=== PATIENT | male | born 1970 | race Caucasian/White ===

== ENCOUNTER 2019-01-25 15:15 | Emergency (ER) | payer OTHER ==
[2019-01-25] MEDS: IBUPROFEN 800 MG TAB PO (16:52)
[2019-01-25 19:13] LABS: ADD MAN DIFF? NO
[2019-01-25 19:15] LABS: WHITE BLOOD COUNT 11.7 10^3/ul (4.8-10.8)
[2019-01-25 19:15] LABS: BASOPHIL # 0.1 10^3/ul (0.0-0.1); BASOPHILS % 0.6 % (0.0-2.0); EOSINOPHILS # 0.2 10^3/ul (0.0-0.5); EOSINOPHILS % 1.9 % (0.0-7.0); HEMATOCRIT 41.6 % (42.0-52.0); HEMOGLOBIN 14.1 g/dl (14.0-18.0); LYMPHOCYTES % 25.9 % (15.0-51.0); MEAN CORPUSCULAR HEMOGLOBIN 31.4 pg (29.0-33.0); MEAN CORPUSCULAR HGB CONC 33.9 g/dl (32.0-37.0); MEAN CORPUSCULAR VOLUME 92.7 fl (82.0-101.0); MEAN PLATELET VOLUME 10.1 fl (7.4-10.4); MONOCYTE # 1.1 10^3/ul (0.3-0.9); MONOCYTES % 9.6 % (0.0-11.0); NEUTROPHIL # 7.2 10^3/ul (1.6-7.5); NEUTROPHILS % 61.5 % (39.0-77.0); PLATELET COUNT 184 10^3/UL (140-415); RED BLOOD COUNT 4.49 10^6/ul (4.70-6.10); RED CELL DISTRIBUTION WIDTH 12.1 % (11.5-14.5)
[2019-01-25 19:22] LABS: ADD UMIC YES; UR ASCORBIC ACID NEGATIVE (NEGATIVE); UR BILIRUBIN (Dip) 1+ mg/dL (NEGATIVE); UR BLOOD (Dip) NEGATIVE (NEGATIVE); UR CLARITY SLIGHTLY CLOUDY (CLEAR); UR COLOR AMBER (YELLOW); UR GLUCOSE (Dip) NEGATIVE (NEGATIVE); UR KETONES (Dip) NEGATIVE (NEGATIVE); UR LEUKOCYTE ESTERASE (Dip) NEGATIVE Leu/ul (NEGATIVE); UR MUCUS MANY /HPF (NONE SEEN); UR NITRITE (Dip) NEGATIVE (NEGATIVE); UR RBC 0 /HPF (0-5); UR TOTAL PROTEIN (Dip) 1+ mg/dl (NEGATIVE); UR UROBILINOGEN (Dip) 1+ mg/dL (NEGATIVE); UR WBC 1 /HPF (0-5)
[2019-01-25] MEDS: ONDANSETRON 4 MG INJ IV (19:29)
[2019-01-25] MEDS: morphine 4 MG/ML VIAL IV (19:29)
[2019-01-25 19:36] LABS: PROTIME 13.3 Sec (11.9-14.9)
[2019-01-25 19:43] LABS: ALANINE AMINOTRANSFERASE 38 IU/L (13-69); ALBUMIN 4.5 g/dl (3.3-4.9); ALBUMIN/GLOBULIN RATIO 1.66; ALKALINE PHOSPHATASE 58 IU/L (42-121); ANION GAP 10 (5-13); ASPARTATE AMINO TRANSFERASE 27 IU/L (15-46); BILIRUBIN,INDIRECT 0.8 mg/dl (0-1.1); BILIRUBIN,TOTAL 0.8 mg/dl (0.2-1.3); BLOOD UREA NITROGEN 18 mg/dl (7-20); CARBON DIOXIDE 24 mmol/L (21-31); CHLORIDE 104 mmol/L (97-110); CREATININE 1.02 mg/dl (0.61-1.24); Estimated GFR > 60 mL/min (>60); GLUCOSE 99 mg/dl (70-220); LIPASE 100 U/L (23-300); POTASSIUM 3.8 mmol/L (3.5-5.1); SODIUM 138 mmol/L (135-144); TOTAL PROTEIN 7.2 g/dl (6.1-8.1)
[2019-01-25] MEDS: AMPICILLIN/SULB 3 GM/NS (PMX) 100 ML IVPB (19:44)
[2019-01-25] MEDS ORDERED: BUPIVACAINE 0.5%/EPI (SDV) 30 ML INJ (19:45)
[2019-01-25] MEDS ORDERED: PROPOFOL 20 ML (19:50)
[2019-01-25] MEDS ORDERED: LIDOCAINE 2% (SDV) 5 ML INJ (19:52)
[2019-01-25 19:54] LABS: TROPONIN-I < 0.012 ng/ml (0.000-0.120)
[2019-01-25] MEDS: HYDROmorphONE 2 MG/ML SYG IV (22:41)
[2019-01-26] MEDS ORDERED: SOD CHLORIDE 0.9% 1,000 ML IV (01:30)
[2019-01-26] MEDS ORDERED: ACETAMINOPHEN 325 MG TAB PO (01:30)
[2019-01-26] MEDS: PIPER-TAZO 3.375 GM IV (PMX) 100 ML IVPB ×2 (02:13→09:30)
[2019-01-26] MEDS: SOD CHLORIDE 0.9% 1,000 ML IV (02:13)
[2019-01-26] MEDS: ONDANSETRON 4 MG INJ IV ×2 (02:20)
[2019-01-26] MEDS: morphine 4 MG/ML VIAL IV (02:20)
[2019-01-26] MEDS: PANTOPRAZOLE (EC) 40 MG TAB PO (06:33)
[2019-01-26] MEDS: ACETAMINOPHEN 325 MG TAB PO ×2 (08:23→10:56)
[2019-01-26] MEDS: IBUPROFEN 600 MG TAB PO (10:56)
[2019-01-26] MEDS ORDERED: ATORVASTATIN 20 MG TAB PO (21:00)
== END 2019-01-26 10:58 | disposition home or self-care (01) ==
LOC: E/R 01-26 10:58 → FTE 15:15
DX: K38.9 Disease of appendix, unspecified (principal)
CPT/HCPCS: 36415; 71045; 74176; 80053; 81001; 83690; 84484; 85025; 85610; 85730; 93005; 96374; 96375; 96376; 99285-25

== ENCOUNTER 2019-01-28 13:58 | Inpatient (IN) | payer OTHER ==
[2019-01-28 14:28] LABS: ADD MAN DIFF? NO
[2019-01-28 14:31] LABS: BASOPHILS % 0.5 % (0.0-2.0); EOSINOPHILS # 0.3 10^3/ul (0.0-0.5); EOSINOPHILS % 3.5 % (0.0-7.0); HEMATOCRIT 40.7 % (42.0-52.0); HEMOGLOBIN 13.6 g/dl (14.0-18.0); LYMPHOCYTES # 2.3 10^3/ul (0.8-2.9); LYMPHOCYTES % 30.3 % (15.0-51.0); MEAN CORPUSCULAR HEMOGLOBIN 31.5 pg (29.0-33.0); MEAN CORPUSCULAR HGB CONC 33.4 g/dl (32.0-37.0); MEAN CORPUSCULAR VOLUME 94.2 fl (82.0-101.0); MEAN PLATELET VOLUME 10.1 fl (7.4-10.4); MONOCYTE # 0.9 10^3/ul (0.3-0.9); MONOCYTES % 11.1 % (0.0-11.0); NEUTROPHIL # 4.2 10^3/ul (1.6-7.5); NEUTROPHILS % 53.8 % (39.0-77.0); PLATELET COUNT 191 10^3/UL (140-415); RED BLOOD COUNT 4.32 10^6/ul (4.70-6.10)
[2019-01-28 14:31] LABS: WHITE BLOOD COUNT 7.7 10^3/ul (4.8-10.8)
[2019-01-28 14:39] LABS: ADD UMIC YES; UR ASCORBIC ACID NEGATIVE (NEGATIVE); UR BILIRUBIN (Dip) NEGATIVE (NEGATIVE); UR BLOOD (Dip) NEGATIVE (NEGATIVE); UR CLARITY CLEAR (CLEAR); UR COLOR YELLOW (YELLOW); UR GLUCOSE (Dip) NEGATIVE (NEGATIVE); UR KETONES (Dip) NEGATIVE (NEGATIVE); UR LEUKOCYTE ESTERASE (Dip) 1+ Leu/ul (NEGATIVE); UR MUCUS FEW /HPF (NONE SEEN); UR NITRITE (Dip) NEGATIVE (NEGATIVE); UR RBC 1 /HPF (0-5); UR SPECIFIC GRAVITY (Dip) 1.021 (1.003-1.030); UR TOTAL PROTEIN (Dip) NEGATIVE (NEGATIVE); UR UROBILINOGEN (Dip) NEGATIVE (NEGATIVE); UR WBC 0 /HPF (0-5)
[2019-01-28] MEDS: ONDANSETRON 4 MG INJ IV (14:39)
[2019-01-28] MEDS: HYDROmorphONE 2 MG/ML SYG IV (14:39)
[2019-01-28] MEDS: SODIUM CHLORIDE 0.9% 1L BAG IV* (14:40)
[2019-01-28 14:50] LABS: ALANINE AMINOTRANSFERASE 41 IU/L (13-69); ALBUMIN 4.4 g/dl (3.3-4.9); ALBUMIN/GLOBULIN RATIO 1.41; ALKALINE PHOSPHATASE 54 IU/L (42-121); ANION GAP 7 (5-13); ASPARTATE AMINO TRANSFERASE 28 IU/L (15-46); BILIRUBIN,INDIRECT 0.7 mg/dl (0-1.1); BILIRUBIN,TOTAL 0.7 mg/dl (0.2-1.3); BLOOD UREA NITROGEN 15 mg/dl (7-20); CALCIUM 9.5 mg/dl (8.4-10.2); CARBON DIOXIDE 27 mmol/L (21-31); CHLORIDE 105 mmol/L (97-110); CREATININE 1.01 mg/dl (0.61-1.24); Estimated GFR > 60 mL/min (>60); GLUCOSE 111 mg/dl (70-220); LIPASE 102 U/L (23-300); POTASSIUM 3.9 mmol/L (3.5-5.1); SODIUM 139 mmol/L (135-144); TOTAL PROTEIN 7.5 g/dl (6.1-8.1)
[2019-01-28] MEDS: AMPICILLIN/SULB 3 GM/NS (PMX) 100 ML IVPB (14:50)
[2019-01-28 15:02] LABS: TROPONIN-I < 0.012 ng/ml (0.000-0.120)
[2019-01-28 15:22] LABS: INR 1.08; PROTIME 14.1 Sec (11.9-14.9); PT RATIO 1.1
[2019-01-28 15:23] LABS: PARTIAL THROMBOPLASTIN TIME 30.3 Sec (23.0-35.0)
[2019-01-28] MEDS ORDERED: ONDANSETRON 4 MG INJ IV (16:00)
[2019-01-28] MEDS ORDERED: ACETAMINOPHEN 325 MG TAB PO (16:00)
[2019-01-28] MEDS ORDERED: morphine 2 MG INJ IV (18:00)
[2019-01-28] MEDS: DEXTROSE 5%-0.45% NACL 1,000 ML IV (18:41)
[2019-01-28] MEDS: FAMOTIDINE 20 MG INJ IV (21:41)
[2019-01-28] MEDS: PIPER-TAZO 3.375 GM IV (PMX) 100 ML IVPB (21:41)
[2019-01-29] MEDS: morphine 4 MG/ML VIAL IV ×3 (01:19→20:55)
[2019-01-29] MEDS: ALBUTEROL/IPRATROPIUM (NEB) 3 ML AMP HHN ×5 (03:07→21:30)
[2019-01-29] MEDS: DEXTROSE 5%-0.45% NACL 1,000 ML IV ×2 (04:26→14:00)
[2019-01-29] MEDS: PIPER-TAZO 3.375 GM IV (PMX) 100 ML IVPB ×3 (05:56→22:30)
[2019-01-29] MEDS ORDERED: BUPIVACAINE 0.25%/EPI (SDV) 10 ML INJ (09:18)
[2019-01-29] MEDS: FAMOTIDINE 20 MG INJ IV ×2 (10:35→20:55)
[2019-01-29] MEDS ORDERED: CEFAZOLIN 1 GM INJ (13:54)
[2019-01-29] MEDS ORDERED: ROCURONIUM 50 MG INJ ×2 (13:54→15:56)
[2019-01-29] MEDS ORDERED: PROPOFOL 20 ML ×2 (13:54→15:56)
[2019-01-29] MEDS ORDERED: ROPIVACAINE 0.5 % 30 ML VIAL (13:55)
[2019-01-29] MEDS ORDERED: MIDAZOLAM 1 MG/ML 2 ML INJ (13:55)
[2019-01-29] MEDS ORDERED: MEPERIDINE 25 MG INJ IV (14:00)
[2019-01-29] MEDS ORDERED: ALBUTEROL 0.083% (NEB) 2.5 MG/3 ML AMP HHN (14:00)
[2019-01-29] MEDS ORDERED: FENTAnyl 50 MCG/ML VIAL IV ×2 (14:00)
[2019-01-29] MEDS ORDERED: LABETALOL HCL 20MG INJ IV (14:00)
[2019-01-29] MEDS ORDERED: EPHEDrine 25 MG/5 ML SYG IV (14:00)
[2019-01-29] MEDS ORDERED: ONDANSETRON 4 MG INJ IV (14:00)
[2019-01-29] MEDS ORDERED: HYDROmorphONE 1 MG/5 ML IV SYRINGE IV ×3 (14:00)
[2019-01-29] MEDS ORDERED: DIPHENHYDRAMINE 50 MG INJ IV (14:00)
[2019-01-29] MEDS ORDERED: OXYCODONE/ACETAMINOPHEN (5/325) TAB PO (14:00)
[2019-01-29] MEDS ORDERED: IPRATROPIUM (NEB) 0.5 MG/2.5 ML AMP HHN (14:00)
[2019-01-29] MEDS ORDERED: METOCLOPRAMIDE 10 MG INJ IV (14:00)
[2019-01-29] MEDS ORDERED: DEXAMETHASONE 4 MG/ML 5 ML INJ (14:50)
[2019-01-29] MEDS ORDERED: ONDANSETRON 4 MG INJ (14:50)
[2019-01-29] MEDS ORDERED: METOCLOPRAMIDE 10 MG INJ (14:50)
[2019-01-29] MEDS: BUPIVACAINE 0.5%/EPI (SDV) 30 ML INJ (15:01)
[2019-01-29] MEDS ORDERED: SUGAMMADEX SODIUM 200 MG/2 ML VIAL IV (15:55)
[2019-01-29] MEDS ORDERED: KETOROLAC 30 MG INJ (15:55)
[2019-01-29] MEDS ORDERED: metroNIDAZOLE 500 MG/NS (PMX) 100 ML IVPB (15:56)
[2019-01-29] MEDS ORDERED: BUPIVACAINE 0.25% (MPF) 30 ML INJ (16:09)
[2019-01-29] MEDS ORDERED: BUPIVACAINE 0.5%/EPI (SDV) 30 ML INJ (16:10)
[2019-01-29] MEDS ORDERED: LABETALOL HCL 20MG INJ (16:11)
[2019-01-29] MEDS: ACETAMINOPHEN 1000MG/100ML IV 100 ML IVPB (17:04)
[2019-01-29] MEDS: METHYLPREDNISOLONE 40 MG INJ IV ×2 (18:07→22:30)
[2019-01-29] MEDS: SOD CHLORIDE 0.9% 100 ML (21:23)
[2019-01-29] MEDS: IOHEXOL 100 ML (21:23)
[2019-01-29] MEDS ORDERED: HYDROCODONE/APAP (5/325) TAB PO (23:00)
[2019-01-29] MEDS: HYDROCODONE/APAP (5/325) TAB PO (23:05)
[2019-01-30] MEDS: morphine 4 MG/ML VIAL IV ×2 (00:23→07:34)
[2019-01-30] MEDS: DEXTROSE 5%-0.45% NACL 1,000 ML IV ×2 (00:23→10:00)
[2019-01-30] MEDS: ALBUTEROL/IPRATROPIUM (NEB) 3 ML AMP HHN ×6 (00:32→20:40)
[2019-01-30] MEDS: PIPER-TAZO 3.375 GM IV (PMX) 100 ML IVPB ×3 (05:36→22:04)
[2019-01-30] MEDS: METHYLPREDNISOLONE 40 MG INJ IV ×2 (05:36→21:10)
[2019-01-30 08:01] LABS: ADD MAN DIFF? NO
[2019-01-30 08:06] LABS: BASOPHILS % 0.1 % (0.0-2.0); HEMATOCRIT 39.1 % (42.0-52.0); HEMOGLOBIN 12.9 g/dl (14.0-18.0); LYMPHOCYTES # 0.9 10^3/ul (0.8-2.9); LYMPHOCYTES % 7.3 % (15.0-51.0); MEAN CORPUSCULAR HEMOGLOBIN 31.1 pg (29.0-33.0); MEAN CORPUSCULAR VOLUME 94.2 fl (82.0-101.0); MEAN PLATELET VOLUME 10.1 fl (7.4-10.4); MONOCYTE # 0.6 10^3/ul (0.3-0.9); MONOCYTES % 4.8 % (0.0-11.0); NEUTROPHIL # 11.1 10^3/ul (1.6-7.5); NEUTROPHILS % 86.9 % (39.0-77.0); PLATELET COUNT 220 10^3/UL (140-415); RED BLOOD COUNT 4.15 10^6/ul (4.70-6.10); RED CELL DISTRIBUTION WIDTH 12.1 % (11.5-14.5)
[2019-01-30 08:06] LABS: WHITE BLOOD COUNT 12.7 10^3/ul (4.8-10.8)
[2019-01-30] MEDS: FAMOTIDINE 20 MG INJ IV ×2 (09:00→21:10)
[2019-01-30 10:01] LABS: AADO2 Arterial 181.7 mmHg (7.0-24.0); Allen Test ACCEPTAB; Arterial Base Excess -2.6 mmol/L (-3.0-3); Arterial Blood Gas Oxygen Sat 92.4 mmHG (95.0-98.0); Arterial COHb 0.6 % (0.0-3.0); Arterial Fraction of Oxyhgb 91.6 % (93.0-99.0); Arterial HCO3 20.6 mmol/L (22.0-26.0); Arterial MetHb 0.3 % (0.0-1.5); Arterial pCO2 31.4 mmhg (35-45); MODE NASAL CANNULA; Site Left Radial
[2019-01-30] MEDS: DOCUSATE SODIUM 100 MG CAP PO ×2 (13:26→21:10)
[2019-01-30] MEDS: NICOTINE (21 MG/24 HR) PATCH TRANSDERM (13:27)
[2019-01-30] MEDS: FUROSEMIDE 20 MG INJ IV (13:28)
[2019-01-31] MEDS: ALBUTEROL/IPRATROPIUM (NEB) 3 ML AMP HHN ×4 (01:08→12:50)
[2019-01-31 05:21] LABS: ADD MAN DIFF? NO
[2019-01-31 05:28] LABS: BASOPHILS % 0.2 % (0.0-2.0); HEMATOCRIT 38.4 % (42.0-52.0); HEMOGLOBIN 12.4 g/dl (14.0-18.0); LYMPHOCYTES # 1.7 10^3/ul (0.8-2.9); LYMPHOCYTES % 12.5 % (15.0-51.0); MEAN CORPUSCULAR HGB CONC 32.3 g/dl (32.0-37.0); MEAN PLATELET VOLUME 10.4 fl (7.4-10.4); NEUTROPHIL # 10.9 10^3/ul (1.6-7.5); NEUTROPHILS % 79.4 % (39.0-77.0); PLATELET COUNT 242 10^3/UL (140-415); RED CELL DISTRIBUTION WIDTH 12.3 % (11.5-14.5)
[2019-01-31 05:28] LABS: WHITE BLOOD COUNT 13.7 10^3/ul (4.8-10.8)
[2019-01-31 05:42] LABS: ANION GAP 6 (5-13); BLOOD UREA NITROGEN 16 mg/dl (7-20); CALCIUM 9.2 mg/dl (8.4-10.2); CARBON DIOXIDE 28 mmol/L (21-31); CHLORIDE 103 mmol/L (97-110); CREATININE 1.02 mg/dl (0.61-1.24); Estimated GFR > 60 mL/min (>60); GLUCOSE 243 mg/dl (70-220); MAGNESIUM 2.2 mg/dl (1.7-2.5); PHOSPHORUS 3.7 mg/dl (2.5-4.9); POTASSIUM 4.8 mmol/L (3.5-5.1); SODIUM 137 mmol/L (135-144)
[2019-01-31] MEDS: PIPER-TAZO 3.375 GM IV (PMX) 100 ML IVPB (05:46)
[2019-01-31] MEDS: METHYLPREDNISOLONE 40 MG INJ IV (09:35)
[2019-01-31] MEDS: DOCUSATE SODIUM 100 MG CAP PO (09:35)
[2019-01-31] MEDS: FAMOTIDINE 20 MG INJ IV (09:35)
[2019-01-31] MEDS: NICOTINE (21 MG/24 HR) PATCH TRANSDERM (09:36)
== END 2019-01-31 14:37 | disposition home or self-care (01) | DRG 856 ==
LOC: E/R 13:58 → 2NE 15:50
PROC: 0DTJ4ZZ Resection of Appendix, Percutaneous Endoscopic Approach (ICD-10-PCS; principal; 2019-01-29 10:00)
PROC: 0WQF4ZZ Repair Abdominal Wall, Percutaneous Endoscopic Approach (ICD-10-PCS; 2019-01-29 10:00)
DX: T81.40XA Infection following a procedure, unspecified, initial encounter (principal); K35.33 Acute appendicitis with perforation, localized peritonitis, and gangrene, with abscess; J44.1 Chronic obstructive pulmonary disease with (acute) exacerbation; K36 Other appendicitis; K42.9 Umbilical hernia without obstruction or gangrene; R10.31 Right lower quadrant pain; K21.9 Gastro-esophageal reflux disease without esophagitis; E78.5 Hyperlipidemia, unspecified; F17.200 Nicotine dependence, unspecified, uncomplicated; R09.02 Hypoxemia; B99.8 Other infectious disease; Y84.8 Other medical procedures as the cause of abnormal reaction of the patient, or of later complication, without mention of misadventure at the time of the procedure; Y92.019 Unspecified place in single-family (private) house as the place of occurrence of the external cause
CPT/HCPCS: 36600; 71045; 71275; 80048; 80053; 81001; 82803; 83605; 83690; 83735; 84100; 84484; 85025; 85610; 85730; 86850; 86900; 86901; 87040-91; 87086; 88302; 88304; 93005; 94640; 94664; 96374; 96375; 99285-25

== ENCOUNTER 2019-02-08 23:36 | Emergency (ER) | payer OTHER ==
[2019-02-09 01:05] LABS: ADD MAN DIFF? NO
[2019-02-09 01:06] LABS: WHITE BLOOD COUNT 10.9 10^3/ul (4.8-10.8)
[2019-02-09 01:06] LABS: BASOPHIL # 0.1 10^3/ul (0.0-0.1); BASOPHILS % 0.5 % (0.0-2.0); EOSINOPHILS # 0.1 10^3/ul (0.0-0.5); EOSINOPHILS % 0.9 % (0.0-7.0); HEMATOCRIT 39.6 % (42.0-52.0); HEMOGLOBIN 13.2 g/dl (14.0-18.0); LYMPHOCYTES # 3.5 10^3/ul (0.8-2.9); LYMPHOCYTES % 31.5 % (15.0-51.0); MEAN CORPUSCULAR HEMOGLOBIN 31.4 pg (29.0-33.0); MEAN CORPUSCULAR HGB CONC 33.3 g/dl (32.0-37.0); MEAN CORPUSCULAR VOLUME 94.3 fl (82.0-101.0); MEAN PLATELET VOLUME 9.9 fl (7.4-10.4); MONOCYTE # 0.9 10^3/ul (0.3-0.9); MONOCYTES % 8.4 % (0.0-11.0); NEUTROPHIL # 6.3 10^3/ul (1.6-7.5); NEUTROPHILS % 57.9 % (39.0-77.0); PLATELET COUNT 218 10^3/UL (140-415); RED CELL DISTRIBUTION WIDTH 11.9 % (11.5-14.5)
[2019-02-09] MEDS: SOD CHLORIDE 0.9% 1,000 ML IV (01:30)
[2019-02-09] MEDS: METOPROLOL 5 MG INJ IV (01:32)
[2019-02-09 01:33] LABS: ALANINE AMINOTRANSFERASE 29 IU/L (13-69); ALBUMIN 4.1 g/dl (3.3-4.9); ALBUMIN/GLOBULIN RATIO 1.36; ALKALINE PHOSPHATASE 54 IU/L (42-121); ANION GAP 10 (5-13); ASPARTATE AMINO TRANSFERASE 27 IU/L (15-46); BILIRUBIN,INDIRECT 0.6 mg/dl (0-1.1); BILIRUBIN,TOTAL 0.6 mg/dl (0.2-1.3); BLOOD UREA NITROGEN 17 mg/dl (7-20); CALCIUM 9.5 mg/dl (8.4-10.2); CARBON DIOXIDE 27 mmol/L (21-31); CHLORIDE 102 mmol/L (97-110); Estimated GFR > 60 mL/min (>60); GLUCOSE 130 mg/dl (70-220); POTASSIUM 4.2 mmol/L (3.5-5.1); SODIUM 139 mmol/L (135-144); TOTAL PROTEIN 7.1 g/dl (6.1-8.1)
[2019-02-09 01:44] LABS: B-TYPE NATRIURETIC PEPTIDE 18 PG/ML (0-125); TROPONIN-I < 0.012 ng/ml (0.000-0.120)
== END 2019-02-09 05:13 | disposition home or self-care (01) ==
LOC: E/R 23:36
DX: R00.2 Palpitations (principal)
CPT/HCPCS: 36415; 71045; 80053; 83880; 84484; 85025; 93005; 96374; 99285-25